=== PATIENT | male | born 1965 ===

== ENCOUNTER 2018-02-08 13:22 | Emergency (ER) | payer OTHER, BC ==
[2018-02-08] MEDS ORDERED: Ketorolac 60 MG/2 ML SDV IM ONE (13:40)
[2018-02-08] MEDS ORDERED: HYDROmorphone 0.5 MG/0.5 ML SYRINGE IM ONE (13:40)
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
--- NOTE | 2018-02-08 14:24 | CT ---
CT chest Technique: Multiple axial sections were obtained through the chest. Intravenous contrast was not utilized. Findings: Consolidation is seen within the right lung base most likely representing atelectasis. Lesser atelectasis is seen within the left base. Small pneumothorax is seen anteriorly within the right base measuring less than 10%. Lungs otherwise are clear. No left-sided pneumothorax is seen. Right clavicle fracture is seen. Minimal endplate concavity seen within the mid to upper thoracic spine. Difficult to know whether this is acute or old. MRI would be needed to further evaluate if clinically indicated. No acute rib fracture is appreciated. Sternum appears intact on the reconstructed sagittal images. Mediastinum and hilar regions show no adenopathy or mass. No pericardial effusion is seen. Fatty infiltration is seen within the liver. Impression: 1. Small pneumothorax as noted above measuring less than 10%. 2. Consolidation within both lung bases, more prominent on the right side most likely representing atelectasis. 3. Fractured right clavicle. 4. Slight endplate concavity within the mid to upper thoracic spine. Uncertain if this is old or acute. MRI would be needed to differentiate if clinically indicated. Diagnostic code #3
== END 2018-02-08 15:30 | disposition home or self-care (01) ==
LOC: JD.ED 13:22
DX: S42.024A Nondisplaced fracture of shaft of right clavicle, initial encounter for closed fracture (principal); J93.9 Pneumothorax, unspecified; S20.211A Contusion of right front wall of thorax, initial encounter; V86.59XA Driver of other special all-terrain or other off-road motor vehicle injured in nontraffic accident, initial encounter
CPT/HCPCS: 71250; 96372; 99284; J1170; J1885